=== PATIENT | female | born 1995 | race Caucasian/White ===

== ENCOUNTER 2017-07-23 21:22 | Emergency (ER) | payer BC ==
[~2017-07-23] VITALS: Ht 172.7 cm; Wt 90.7 kg
[2017-07-23 21:22] VITALS: BP_SYST 132
--- NOTE | 2017-07-23 22:06 | NUR ---
Placed in room 06. To gown for exam. Side rails up. Report given to DERIK Winslow.
--- NOTE | 2017-07-23 22:10 | NUR ---
Patient to ER via triage with c/o painful lump to left axillary area x 1 week. Patient is awake, alert and oriented in no acute distress. Patient able to ambulate to room with slow, steady gait without difficulty, patient resting quietly in position of comfort. Patient is awaiting evaluation by ER MD, will continue to observe and assess.
--- NOTE | 2017-07-23 22:40 | NUR ---
Dr Miguel at bedside to evaluate patient.
[2017-07-23 23:10] VITALS: BP_SYST 124
--- NOTE | 2017-07-23 23:10 | NUR ---
Patient given written and verbal discharge instructions and verbalizes understanding. ER MD discussed with patient the results and treatment provided. Patient in stable condition. ID arm band removed. Rx of Clindamycin, Ibuprofen given. Patient educated on pain management and to follow up with PMD. Pain Scale 3. Opportunity for questions provided and answered. Patient left ER ambulating with slow, steady gait in no acute distress, family at side.
== END 2017-07-23 23:10 | disposition home or self-care (01) ==
LOC: SED 21:22
DX: L73.9 Follicular disorder, unspecified (principal); Z88.0 Allergy status to penicillin; Z88.1 Allergy status to other antibiotic agents; Z90.49 Acquired absence of other specified parts of digestive tract
CPT/HCPCS: 99283

== ENCOUNTER 2019-06-20 20:48 | Emergency (ER) | payer BC ==
[~2019-06-20] VITALS: Ht 170.2 cm; Wt 86.2 kg
[2019-06-20 20:56] VITALS: BP_SYST 122
--- NOTE | 2019-06-20 21:00 | NUR ---
Patient triaged and placed in waiting room. VSS and patient appears in no acute distress at this time. Accompanied by visitor, awaiting available bed, and MD notified of need for MSE.
--- NOTE | 2019-06-20 22:00 | NUR ---
Pt taken to radiology dept for ultrasound by radiology staff.
--- NOTE | 2019-06-20 22:00 | NUR ---
ER at bedside examining patient.
--- NOTE | 2019-06-20 22:00 | NUR ---
Pt brought in by friend. Pt awake, alert, oriented x4. Pt states that she has recently had approx 5 days ago, implantation of IUD. Pt states that she has had vaginal bleeding x4-5 days and 5/10 abdominal pain. Pt states that she has been going through 4-5 pads a day on some days. Pt denies chest pain, nausea, vomiting, diarrhea, shortness of breath or any other medical compliant at this time. Pt vss. Will continue to monitor
--- NOTE | 2019-06-20 22:15 | NUR ---
Pt returned from radiology
[2019-06-20 23:25] VITALS: BP_SYST 120
--- NOTE | 2019-06-20 23:25 | NUR ---
Patient given written and verbal discharge instructions and verbalizes understanding. ER MD discussed with patient the results and treatment provided. Patient in stable condition. ID arm band removed. No IV Rx of [place], Provera, Cipro given. Patient educated on pain management and to follow up with PMD. Pain Scale 0/10. Opportunity for questions provided and answered. Medication side effect fact sheet provided.
== END 2019-06-20 23:25 | disposition home or self-care (01) ==
LOC: SED 20:48
DX: N93.8 Other specified abnormal uterine and vaginal bleeding (principal); N39.0 Urinary tract infection, site not specified; Z88.0 Allergy status to penicillin; Z88.1 Allergy status to other antibiotic agents
CPT/HCPCS: 76830-TC; 76857; 81002; 81025; 99284